=== PATIENT | female | born 1955 | race Caucasian/White ===

== ENCOUNTER → 2017-01-05 | Outpatient (CLI) | payer BC ==
--- NOTE | 2017-01-05 15:42 | GI Initial Consult Note ---
History of Present Illness General Date patient seen: Jan 05, 2017 Time patient seen: 15:30 Referring physician: CJ Reason for Consultation: FECAL IMPACTION Present Illness HPI 61 year old female referred to [facility] by Dr. Nazario for evaluation of fecal impaction. According to the patient, she's had periods where she felt her stool has become "stuck" in her rectum. She has been able to pass soft stool. In addition, patient has complaints of abdominal bloating. Pt is currently on a high fiber diet which offered her minimal relief. Patient denies any medical history. S/P colonoscopy 2012, see full report below. DATE OF PROCEDURE: 05/02/2013 ENDOSCOPIST: BUD DANIELS MD PROCEDURE PERFORMED: Colonoscopy. SUMMARY OF FINDINGS: 1. One colonic polyp removed, see above for details. 2. Diverticulosis in the left colon. 3. Internal hemorrhoids. 4. One lipoma in the sigmoid colon. RECOMMENDATIONS: 1. low up biopsies and treat accordingly. 2. Recommend repeat colonoscopy in five years. Med list reviewed/reconciled: Yes Allergies: Coded Allergies: ACETAMINOPHEN (Verified Allergy, Mild, 01/02/12) ASPIRIN (Verified Allergy, Mild, 01/02/12) LACTOSE (Verified Allergy, Unknown, BLOWDING, 08/24/15) Uncoded Allergies: CHILI (Allergy, Unknown, HERPES(SORE ON LIPS), 08/24/15) Patient History History Provided By: Patient, Medical Record [facility] Narrative Denies Medical History s/p appendectomy vaginal infection positive 10/2016 Family History Narrative denies Social History: Reports: alcohol use - social / glass of wine a day, other - coffee, smoking - quit x 10 years Review of Systems All Other Systems: negative except mentioned in HPI Physical Exam T 98.3 BP 116/68 P 66 93 RA WT 200lbs (denies weight loss) HT 5 7 Sp02 EP Interpretation: reviewed General Appearance: well appearing, no apparent distress, alert Head: normocephalic EENT: normal ENT inspection Neck: supple Respiratory: normal breath sounds, no respiratory distress Cardiovascular: normal rate Gastrointestinal: normal inspection, non tender, normal bowel sounds Musculoskeletal: normal inspection Neurologic: normal inspection, alert, oriented x3 Psychiatric: normal inspection, judgement/insight normal, memory normal Skin: normal inspection, normal color, no rash, warm/dry Lymphatic: normal inspection, no adenopathy GI: Plan Problems: (1) Hemorrhoids (2) Diverticulosis (3) Colonic polyp (4) Constipated Plan Initial impression: Rectal Dysfunction - increase fiber in diet - recommended scheduled toilet training RTC x 1 month will consider rectal manometry at [facility] if not improved repeat colon April [address] Daniels. Thank you for referring this kind patient. Andra Mcknight N.P. Jan 05, 2017 15:42
[2017-01-06 16:49] VITALS: BP 116/68
== END | disposition home or self-care (01) ==
LOC: PAN 15:09
DX: K59.00 Constipation, unspecified (principal); K64.9 Unspecified hemorrhoids; K57.90 Diverticulosis of intestine, part unspecified, without perforation or abscess without bleeding; K63.5 Polyp of colon; Z88.6 Allergy status to analgesic agent; Z91.011 Allergy to milk products; Z91.018 Allergy to other foods; Z90.89 Acquired absence of other organs; Z87.891 Personal history of nicotine dependence
CPT/HCPCS: 99201